=== PATIENT | female | born 1975 | race Caucasian/White ===

== ENCOUNTER 2016-07-09 16:32 | Emergency (ER) | payer MEDICARE | END 2016-07-09 17:06 | disposition home or self-care (01) | LOC: ER 16:32 | DX: J01.90 Acute sinusitis, unspecified (principal); F17.210 Nicotine dependence, cigarettes, uncomplicated; Z79.899 Other long term (current) drug therapy ==

== ENCOUNTER 2016-09-18 15:59 | Emergency (ER) | payer MEDICARE | END 2016-09-18 18:25 | disposition home or self-care (01) | LOC: ER 15:59 | DX: L02.612 Cutaneous abscess of left foot (principal); K21.9 Gastro-esophageal reflux disease without esophagitis; F32.9 Major depressive disorder, single episode, unspecified; F17.210 Nicotine dependence, cigarettes, uncomplicated; Z90.710 Acquired absence of both cervix and uterus; Z79.899 Other long term (current) drug therapy ==